=== PATIENT | male | born 1960 | race Caucasian/White ===

== ENCOUNTER → 2024-05-10 14:53 | Outpatient (REF) | payer OTHER, SELFPAY | LOC: HWRCS 14:53 | DX: I71.22 Aneurysm of the aortic arch, without rupture (principal) | CPT/HCPCS: 93306 ==

== ENCOUNTER → 2024-06-04 06:56 | Outpatient (REF) | payer OTHER, SELFPAY | LOC: RAD 06:56 | DX: I77.810 Thoracic aortic ectasia (principal) | CPT/HCPCS: 71260; Q9967 ==

== ENCOUNTER → 2025-01-20 07:35 | Outpatient (REF) | payer OTHER, SELFPAY | LOC: RAD 07:35 | DX: I77.810 Thoracic aortic ectasia (principal) | CPT/HCPCS: 71275; Q9967 ==